=== PATIENT | female | born 1995 | race African-American/Black ===

== ENCOUNTER 2019-11-28 13:17 | Emergency (ER) | payer OTHER, MEDICAID ==
[~2019-11-28] VITALS: Ht 162.6 cm; Wt 86.4 kg
[2019-11-28 13:26] VITALS: BP 114/68; TEMP 97.6
[2019-11-28] MEDS ORDERED: ENTRESTO 97 MG1 EACH PO (14:33)
[2019-11-28] MEDS ORDERED: PROVERA 10MG10 MG PO (14:34)
[2019-11-28] MEDS ORDERED: ZEBETA 5MG5 MG PO (14:34)
[2019-11-28] MEDS ORDERED: ALDACTONE 25MG25 M1 PO (14:34)
[2019-11-28 15:54] VITALS: PULSE 81
== END 2019-11-28 15:55 | disposition home or self-care (01) ==
LOC: COL.ER 13:17
DX: J06.9 Acute upper respiratory infection, unspecified (principal); B30.9 Viral conjunctivitis, unspecified

== ENCOUNTER 2021-03-19 09:13 | Inpatient (IN) | payer OTHER, MEDICAID ==
[~2021-03-19] VITALS: Ht 162.6 cm; Wt 82.3 kg
[~2021-03-19 09:13] MED LIST: ALDACTONE 25MG25 M1 PO; ENTRESTO 97 MG1 EACH PO; PROVERA 10MG10 MG PO; ZEBETA 5MG5 MG PO
[2021-03-19] MEDS ORDERED: JARDIANCE10 (10:00)
[2021-03-19 10:23] LABS: BASO % 0.9 % (0.0-2.0); EOS # 0.1 (0.0-0.7); EOS % 1.5 % (0-4.0); GRAN # 2.6 (1.4-6.5); GRAN % 57.2 % (42.2-75.2); HEMATOCRIT 41.7 % (37.0-47.0); HEMOGLOBIN 14.1 g/dl (12.5-16.0); LYMPH # 1.5 (1.2-3.4); LYMPH % 32.4 % (20.0-51.0); MEAN CELL VOLUME 92 fl (80.0-100.0); MEAN CORPUSCULAR HEMOGLOBIN 31 pg (27.0-31.0); MEAN CORPUSCULAR HGB CONC 34 g/dl (33.0-37.0); MEAN PLATELET VOLUME 11.5 fl (7.4-10.4); MONO # 0.4 (0.1-0.6); MONO % 7.8 % (1.7-9.3); PLATELET COUNT 189 K/mm3 (130-400); RED BLOOD COUNT 4.54 M/mm3 (4.10-5.30); REDCELL DISTRIBUTION WIDTH-CV 13.9 % (11.5-14.5)
[2021-03-19 10:27] LABS: INR 1.1 (0.8-3.0); PROTHROMBIN TIME 12.3 SECONDS (9.7-12.8)
[2021-03-19 10:45] LABS: TROPONIN-I 0.028 ng/mL (0.000-0.035)
[2021-03-19 11:48] LABS: C-REACTIVE PROTEIN < 0.5 mg/dL (0.0-0.9)
[2021-03-19 12:34] LABS: ALBUMIN 4.1 gm/dL (3.5-5.0); BILIRUBIN,TOTAL 0.9 mg/dL (0.0-1.0); CALCIUM 9.1 mg/dL (8.4-10.2); CREATININE, serum 1.02 (0.52-1.25); POTASSIUM 3.8 mmol/L (3.4-5.0); TOTAL PROTEIN 7.8 gm/dL (6.4-8.2)
[2021-03-19 17:00] VITALS: BP 111/63; PULSE 83; TEMP 98.8
--- NOTE | 2021-03-19 18:11 | NUR ---
Patient resting in bed, had CT and experienced some nausea after the procedure. No further reports of nausea. A&Ox3. VSS. IV CDI. Denies pain and discomfort. No further needs expressed from the patient. Call light within reach
[2021-03-19 22:11] VITALS: BP 98/54; PULSE 83; TEMP 98.6
--- NOTE | 2021-03-19 22:52 | NUR ---
ALERT AND OX4. SETTING UP IN BED. DENIES CHEST PAIN, SOA OR DIZZY. NO PAIN. WAS EXPERIENCING SOME ANIEXTY TONIGHT 1X ORDER OF ATIVAN 0.5MG GIVEN. CURRENTLY ON RA. UP INDEPEDENTLY IN ROOM. POC DISCUSSED. NEEDS MET.
[2021-03-20 04:00] VITALS: BP 107/64; PULSE 65; TEMP 98.5
--- NOTE | 2021-03-20 05:53 | NUR ---
RESTED THROUGH THE NIGHT AFTER GIVING ANIEXTY MED. NEEDS MET.
[2021-03-20 06:46] LABS: BASO % 0.8 % (0.0-2.0); EOS # 0.1 (0.0-0.7); EOS % 2.3 % (0-4.0); GRAN % 51.3 % (42.2-75.2); HEMATOCRIT 41.1 % (37.0-47.0); LYMPH # 1.4 (1.2-3.4); LYMPH % 37.1 % (20.0-51.0); MEAN CELL VOLUME 92 fl (80.0-100.0); MEAN CORPUSCULAR HEMOGLOBIN 31 pg (27.0-31.0); MEAN CORPUSCULAR HGB CONC 34 g/dl (33.0-37.0); MEAN PLATELET VOLUME 11.6 fl (7.4-10.4); MONO # 0.3 (0.1-0.6); MONO % 8.2 % (1.7-9.3); PLATELET COUNT 177 K/mm3 (130-400); RED BLOOD COUNT 4.49 M/mm3 (4.10-5.30); REDCELL DISTRIBUTION WIDTH-CV 13.9 % (11.5-14.5)
[2021-03-20 06:57] LABS: ANION GAP 6 mmol/L (7-16); BLOOD UREA NITROGEN 14 mg/dL (7-17); CARBON DIOXIDE 23 mmol/L (22-30); CHLORIDE 107 mmol/L (98-107); CREATININE, serum 1.05 (0.52-1.25); GLUCOSE 80 mg/dL (74-106); POTASSIUM 3.4 mmol/L (3.4-5.0); SODIUM 136 mmol/L (137-145)
[2021-03-20 07:16] LABS: TROPONIN-I < 0.012 ng/mL (0.000-0.035)
[2021-03-20 08:00] VITALS: BP 105/62; PULSE 78; TEMP 98.3
[2021-03-20] MEDS ORDERED: DOXYCYCLINE 10100 MG PO (11:09)
[2021-03-20] MEDS ORDERED: PROAIR HFA0.09 MG/AC IH (11:09)
[2021-03-20 11:35] VITALS: BP 86/51; PULSE 94; TEMP 98.8
--- NOTE | 2021-03-20 12:48 | NUR ---
Wealth Management Consultant attended clinical rounds with the team. The patient to tentatively discharge home today, 03/20. The patient may be requiring oxygen, exercise oximetry completed. The patient does not qualify for oxygen at this time. The patient to get order for a new albuterol inhaler. Following rounds, SW met with the patient to complete intake. The patient lives in [place] with her 6 year old son. The patient has a BP cuff at home and is independent. The patient's PCP is Dr. Manuel Banerjee and patient receives medications from [facility] in [place]. The patient does not have advanced directives but was interested in DPOA-HC form, form provided. The patient is not . The patient's parents are Eduarda and Jose C. The plan is for the patient to return home at discharge. *Discharge disposition: Home
--- NOTE | 2021-03-20 15:36 | NUR ---
1530 PT DISCHARGED AT THIS TIME NO S/S OF DISTRESS NOTED. IV ACCESS REMOVED. TELE MONITOR REMOVED. PT STATES SHE HAS TO DRIVE HOME BECAUSE SHE DROVE HERE AND HAS NO MODE OF HAVING ANYONE TO CLINICAL RESEARCH ASSOCIATE HER CAR. CALL PLACED TO MELANIE JI GIVEN PT ID NOT RECEIVED ANY SEDATIVE MEDICATION AND HAS NO S/S OF DISTRESS NOTED.
[2021-05-17] MEDS ORDERED: COMPLETE MULTI1 TAB PO (12:39)
[2021-05-19] MEDS ORDERED: LASIX 20MG TABL20 MG PO (08:33)
[2021-05-19] MEDS ORDERED: K-DUR 10 MEQ T10 MEQ PO (08:34)
== END 2021-03-20 15:30 | disposition home or self-care (01) | DRG 291 ==
LOC: COL.ER 09:13 → MEDICAL 11:46 → COL.ER 11:46 → MEDICAL 11:46
PROVIDERS: Emergency Medicine; Physician Assistant; ADMIT Internal Medicine
DX: I50.23 Acute on chronic systolic (congestive) heart failure (principal); J18.9 Pneumonia, unspecified organism; J96.01 Acute respiratory failure with hypoxia; R04.2 Hemoptysis; I42.8 Other cardiomyopathies; J45.909 Unspecified asthma, uncomplicated; F41.9 Anxiety disorder, unspecified; I48.91 Unspecified atrial fibrillation; Z87.891 Personal history of nicotine dependence; R07.89 Other chest pain
CPT/HCPCS: 99223-AI; 99239; J0696; J1200; J1940; J2060; Q9967

== ENCOUNTER 2021-11-27 08:20 | Emergency (ER) | payer OTHER, MEDICAID ==
[~2021-11-27] VITALS: Ht 165.1 cm; Wt 81.8 kg
[~2021-11-27 08:20] MED LIST changes: +COMPLETE MULTI1 TAB PO; +DOXYCYCLINE 10100 MG PO; +JARDIANCE10; +K-DUR 10 MEQ T10 MEQ PO; +LASIX 20MG TABL20 MG PO; +PROAIR HFA0.09 MG/AC IH
[2021-11-27 08:24] VITALS: TEMP 98.5
[2021-11-27 08:37] LABS: BASO % 0.5 % (0.0-2.0); EOS # 0.1 K/mm3 (0.0-0.7); GRAN # 4.2 K/mm3 (1.4-6.5); GRAN % 71.9 % (42.2-75.2); HEMATOCRIT 40.6 % (37.0-47.0); HEMOGLOBIN 14.1 g/dl (12.5-16.0); LYMPH # 1.1 K/mm3 (1.2-3.4); LYMPH % 19.1 % (20.0-51.0); MEAN CELL VOLUME 90 fl (80.0-100.0); MEAN CORPUSCULAR HEMOGLOBIN 31 pg (27-31); MEAN CORPUSCULAR HGB CONC 35 g/dl (33.0-37.0); MEAN PLATELET VOLUME 11.1 fl (7.4-10.4); MONO # 0.4 K/mm3 (0.1-0.6); MONO % 7.3 % (1.7-9.3); PLATELET COUNT 174 K/mm3 (130-400); RED BLOOD COUNT 4.51 M/mm3 (4.10-5.30); REDCELL DISTRIBUTION WIDTH-CV 13.5 % (11.5-14.5)
[2021-11-27 08:57] LABS: ALBUMIN 3.6 gm/dL (3.5-5.0); CALCIUM 8.9 mg/dL (8.4-10.2); CREATININE, serum 1.02 mg/dL (0.57-1.11); POTASSIUM 3.9 mmol/L (3.5-4.5); TOTAL PROTEIN 6.6 gm/dL (6.2-8.1)
[2021-11-27 09:02] LABS: TROPONIN-I 0.024 ng/mL (0.00-0.033)
[2021-11-27] MEDS ORDERED: LASIX 20MG TABL20 MG PO (12:05)
[2021-11-27 13:11] VITALS: BP 109/68; PULSE 82
== END 2021-11-27 13:16 | disposition home or self-care (01) ==
LOC: COL.ER 08:20
PROVIDERS: Emergency Medicine
DX: R07.9 Chest pain, unspecified (principal); R79.1 Abnormal coagulation profile; Z95.810 Presence of automatic (implantable) cardiac defibrillator
CPT/HCPCS: J1200; J2930; Q9967